=== PATIENT | female | born 1970 | race Caucasian/White ===

== ENCOUNTER 2016-05-12 14:57 | Emergency (ER) | payer OTHER ==
[~2016-05-12 14:57] MED LIST: ALPRAZOLAM PO; AMBIEN CR PO; BIRTH CONTROL PILL PO; CALCIUM + D3 E1 EACH PO; CERTAGEN PO; ELETRIPTAN; FIORICET W/CODE1 CAP PO; FLORICET; FROVA2.5 MG PO; MEDROL PO; MULTI-VITAMIN1 EAC1 PO; PHENERGAN PO; PHENERGAN25 M1 PO; RELPAX40 MG PO; STADOL; STADOL NS25 MG; STADOL NS25 MG MC; TOPAMAX PO; VICODIN 5/500 T1 TAB PO; YAZ 28 TABLET1 TAB PO; [UNRECOGNIZED DRUG - OTHER]
== END 2016-05-12 17:19 | disposition home or self-care (01) ==
LOC: SED 14:57
DX: G43.909 Migraine, unspecified, not intractable, without status migrainosus (principal)
CPT/HCPCS: 96361; 96374; 96375; 99284; J0780; J1100; J1200; J1885